=== PATIENT | male | born 1965 | race Caucasian/White ===

== ENCOUNTER 2017-10-06 06:56 | Emergency (ER) | payer BC, OTHER ==
[~2017-10-06] VITALS: Ht 175.3 cm; Wt 148.0 kg
[2017-10-06 07:06] VITALS: BP 154/85; PULSE 102; RESP 20; TEMP 97.8; O2SAT 97
--- NOTE | 2017-10-06 07:27 | PD ---
HPI Chief Complaint: Dizziness Time Seen by Provider: 07:18 Travel History International Travel<30 days: No Contact w/Intl Traveler<30days: No Traveled to known affect area: No History of Present Illness HPI This is a 52-year-old male with a history of diabetes mellitus, hypertension, BPH, obesity, who presents today with complaints of dizziness over the last 2-3 days. Patient states that he wakes up a couple times at night and has couple nights. Patient states that he just started phentermine a few days ago. He states that the symptoms started a couple days ago. He states that when he wakes up he feels like he is hyperventilating. He also says that he feels like he does not get enough oxygen. The patient made the comment that he knows he has sleep apnea but does not have a CPAP machine. I asked him who follows him for his primary care, he reports that his grey percher pre-much cares for everything. The patient states he did not take his phentermine today but last took it yesterday. Denies any chest pain, chest pressure. He states he gets palpitations at times. There are no other complaints at the time of my examination. PFSH Past Medical History Cardiovascular Problems: Yes (hypertension) Diabetes: Yes Diminished Hearing: No Hypertension: Yes Social History Alcohol Use: No Tobacco Use: No Substance Use: No Allergies-Medications (Allergen,Severity, Reaction): Coded Allergies: phenytoin (Unverified Allergy, Unknown, 10/06/17) Reported Meds & Prescriptions Reported Meds & Active Scripts Active Reported Fenofibrate 145 Mg Tab 145 Mg PO DAILY Vesicare (Solifenacin) 5 Mg Tab 5 Mg PO DAILY Lomaira (Phentermine HCl) 8 Mg Tab 8 Mg PO DAILY Farxiga (Dapagliflozin) 10 Mg Tab 10 Mg PO DAILY Cozaar (Losartan Potassium) 50 Mg Tab 50 Mg PO DAILY Clonidine (Clonidine HCl) 0.1 Mg Tab 0.1 Mg PO DAILY Metformin (Metformin HCl) 500 Mg Tab 500 Mg PO BIDPC Metoprolol Succinate ER 24 HR (Metoprolol Succinate) 100 Mg Tab 100 Mg PO DAILY Pioglitazone (Pioglitazone HCl) 30 Mg Tab 30 Mg PO DAILY Losartan (Losartan Potassium) 100 Mg Tab 100 Mg PO DAILY Tamsulosin (Tamsulosin HCl) 0.4 Mg Cap 0.4 Mg PO HS Review of Systems Except as stated in HPI: all other systems reviewed are Neg General / Constitutional: No: Fever, Chills Eyes: No: Blurred Vision, Photophobia HENT: Positive: Lightheadedness, No: Headaches, Neck Pain Cardiovascular: No: Chest Pain or Discomfort, Palpitations, Tachycardia Respiratory: Positive: Other (Patient reports she hyperventilates when he sleeping at night over the last couple nights), No: Cough, Shortness of Breath Gastrointestinal: No: Nausea, Vomiting, Diarrhea, Abdominal Pain Genitourinary: Positive: Other (History of BPH), No: Dysuria, Incontinence Musculoskeletal: Positive: Pain (Tonic lower extremity pain), No: Weakness Neurologic: Positive: Dizziness (More lightheaded and dizzy), No: Weakness, Headache, Change in Mentation Physical Exam Narrative GENERAL: Obese male in no acute respiratory distress. Patient was radha in the lateral decubitus position when I entered the room. SKIN: Focused skin assessment warm/dry. HEAD: Atraumatic. Normocephalic. EYES: No scleral icterus. No injection or drainage. ENT: No nasal bleeding or discharge. Mucous membranes pink and moist. NECK: Trachea midline. Supple. CARDIOVASCULAR: Rate at 99. No murmur appreciated. RESPIRATORY: No accessory muscle use. Clear to auscultation. Breath sounds equal bilaterally. GASTROINTESTINAL: Abdomen soft, obese, non-tender, nondistended. MUSCULOSKELETAL: No obvious deformities. No clubbing. No cyanosis. Venous stasis changes. NEUROLOGICAL: Awake and alert. No obvious cranial nerve deficits. Motor grossly within normal limits. Normal speech. PSYCHIATRIC: Appropriate mood and affect; insight and judgment normal. Data Data Last Documented VS Vital Signs Date Time Temp Pulse Resp B/P (MAP) Pulse Ox O2 Delivery O2 Flow Rate FiO2 10/06/17 11:25 92 18 132/65 (87) 94 10/06/17 08:05 Room Air 10/06/17 07:06 97.8 Orders Orders Electrocardiogram (10/06/17 07:18) Complete Blood Count With Diff (10/06/17 07:18) Comprehensive Metabolic Panel (10/06/17 07:18) Urinalysis - C+S If Indicated (10/06/17 07:18) Thyroid Stimulating Hormone (10/06/17 07:18) Chest, Single Ap (10/06/17 07:18) Iv Access Insert/Monitor (10/06/17 07:18) Ecg Monitoring (10/06/17 07:18) Oximetry (10/06/17 07:18) Arterial Blood Gas (Abg) (10/06/17 08:14) Sodium Chlor 0.9% 1000 Ml Inj (Ns 1000 M (10/06/17 08:45) Labs Laboratory Tests Test 10/06/17 08:00 10/06/17 08:42 10/06/17 09:00 White Blood Count 9.4 TH/MM3 Red Blood Count 5.14 MIL/MM3 Hemoglobin 15.3 GM/DL Hematocrit 43.4 % Mean Corpuscular Volume 84.4 FL Mean Corpuscular Hemoglobin 29.9 PG Mean Corpuscular Hemoglobin Concent 35.4 % Red Cell Distribution Width 15.6 % Platelet Count 274 TH/MM3 Mean Platelet Volume 7.3 FL Neutrophils (%) (Auto) 69.8 % Lymphocytes (%) (Auto) 19.5 % Monocytes (%) (Auto) 6.3 % Eosinophils (%) (Auto) 3.8 % Basophils (%) (Auto) 0.6 % Neutrophils # (Auto) 6.6 TH/MM3 Lymphocytes # (Auto) 1.8 TH/MM3 Monocytes # (Auto) 0.6 TH/MM3 Eosinophils # (Auto) 0.4 TH/MM3 Basophils # (Auto) 0.1 TH/MM3 CBC Comment DIFF FINAL Differential Comment Blood Urea Nitrogen 27 MG/DL Creatinine 1.09 MG/DL Random Glucose 179 MG/DL Total Protein 7.3 GM/DL Albumin 3.4 GM/DL Calcium Level 9.1 MG/DL Alkaline Phosphatase 51 U/L Aspartate Amino Transf (AST/SGOT) 14 U/L Alanine Aminotransferase (ALT/SGPT) 35 U/L Total Bilirubin 0.5 MG/DL Sodium Level 136 MEQ/L Potassium Level 4.0 MEQ/L Chloride Level 103 MEQ/L Carbon Dioxide Level 25.8 MEQ/L Anion Gap 7 MEQ/L Estimat Glomerular Filtration Rate 72 ML/MIN Thyroid Stimulating Hormone 3rd Gen 2.300 uIU/ML Blood Gas Puncture Site LT RADIAL Blood Gas Patient Temperature 98.6 Blood Gas HCO3 25 mmol/L Blood Gas Base Excess 0.7 mmol/L Blood Gas Oxygen Saturation 92 % Arterial Blood pH 7.43 Arterial Blood Partial Pressure CO2 38 mmHg Arterial Blood Partial Pressure O2 69 mmHG Arterial Blood Oxygen Content 20.0 Vol % Arterial Blood Carboxyhemoglobin 1.2 % Arterial Blood Methemoglobin 0.7 % Blood Gas Hemoglobin 15.5 G/DL Oxygen Delivery Device ROOM AIR Blood Gas Inspired Oxygen 21 % Urine Color YELLOW Urine Turbidity CLEAR Urine pH 5.5 Urine Specific [place] 1.027 Urine Protein 30 mg/dL Urine Glucose (UA) 1000 mg/dL Urine Ketones NEG mg/dL Urine Occult Blood NEG Urine Nitrite NEG Urine Bilirubin NEG Urine Urobilinogen LESS THAN 2.0 MG/DL Urine Leukocyte Esterase NEG Urine RBC LESS THAN 1 /hpf Urine WBC 1 /hpf Urine Mucus FEW /lpf Microscopic Urinalysis Comment CULT NOT INDICATED MDM Medical Decision Making Medical Screen Exam Complete: Yes Emergency Medical Condition: Yes Differential Diagnosis Medication side effect versus metabolic derangement versus thyroid disorder versus sleep apnea Narrative Course 52-year-old male with a history of diabetes mellitus, obesity, who presents today with complaints of dizziness/lightheadedness. Patient also stating that he is not sleeping well over the last few days. He recently started phentermine. He did not take it today. Patient was noted to be slightly dehydrated on exam. Been given a liter of IV fluid. He states he feels better. I informed him that if he thinks he has sleep apnea he very likely does. He will need to follow-up with a pulmonary physician. I will give him the name of the pulmonary physician afternoon babysitter. He is instructed to not take his diet pills and if his symptoms improve to let his physician know that he was having symptoms from this. He is instructed to return if he develops any returning of symptoms or feeling worse. Diagnosis Primary Impression: Insomnia Additional Impressions: Dizziness Suspect education side effect. Referrals: Joel Merida MD Additional Instructions: Hold the diet pills. Follow-up with your grey percher. It is important he find a primary care physician. Make an appointment with the pulmonary doctors for evaluation for possible sleep apnea. Drink plenty of fluids. I recommend exercise and moderate diet. Disposition: 01 DISCHARGE HOME Condition: Stable Roger Montero MD Oct 06, 2017 07:27
--- NOTE | 2017-10-06 07:45 | RADRPT ---
EXAM DATE/TIME: 10/06/2017 07:36 [facility] COMPARISON: No previous studies available for comparison. INDICATIONS : Patient states shortness of breath. MEDICAL HISTORY : Hypertension. Hypercholesterolemia. Diabetes mellitus type II. SURGICAL HISTORY : None. ENCOUNTER: Initial ACUITY: 1 day PAIN SCORE: 4/10 LOCATION: Bilateral chest FINDINGS: A single view of the chest demonstrates the lungs to be symmetrically aerated without evidence of mas s, infiltrate or effusion. The cardiomediastinal contours are unremarkable. Osseous structures are intact. CONCLUSION: Normal examination. Dylan Dasilva MD on October 06, 2017 at 7:43 Board Certified Radiologist. This report was verified electronically.
[2017-10-06] MEDS ORDERED: PIOG30TA4 PO (08:02)
[2017-10-06] MEDS ORDERED: METF500T PO (08:02)
[2017-10-06] MEDS ORDERED: CLON0.1T PO (08:02)
[2017-10-06] MEDS ORDERED: COZA50TA PO (08:02)
[2017-10-06] MEDS ORDERED: PHEN-556 PO (08:02)
[2017-10-06] MEDS ORDERED: TAMS0.4C4 PO (08:02)
[2017-10-06] MEDS ORDERED: METO1TAB43 PO (08:02)
[2017-10-06] MEDS ORDERED: VESI5TAB2 PO (08:02)
[2017-10-06] MEDS ORDERED: LOSA100T PO (08:02)
[2017-10-06] MEDS ORDERED: FENO145T2 PO (08:02)
[2017-10-06] MEDS ORDERED: DAPA1TAB3 PO (08:02)
[2017-10-06 08:05] VITALS: BP 133/75; PULSE 100; RESP 16; O2SAT 93
[2017-10-06 08:17] LABS: AUTOMATED NEUTROPHIL # 6.6 TH/MM3 (1.8-7.7); BASOPHIL # 0.1 TH/MM3 (0-0.2); BASOPHIL % 0.6 % (0.0-2.0); EOSINOPHIL # 0.4 TH/MM3 (0-0.4); EOSINOPHIL % 3.8 % (0.0-4.0); HEMATOCRIT 43.4 % (39.0-51.0); HEMOGLOBIN 15.3 GM/DL (13.0-17.0); LYMPH % 19.5 % (9.0-44.0); LYMPHOCYTE # 1.8 TH/MM3 (1.0-4.8); MEAN CELL VOLUME 84.4 FL (80.0-100.0); MEAN CORPUSCULAR HEMOGLOBIN 29.9 PG (27.0-34.0); MEAN CORPUSCULAR HGB CONC 35.4 % (32.0-36.0); MEAN PLATELET VOLUME 7.3 FL (7.0-11.0); MONO % 6.3 % (0.0-8.0); MONOCYTE # 0.6 TH/MM3 (0-0.9); NEUT % 69.8 % (16.0-70.0); PLATELET COUNT 274 TH/MM3 (150-450); RED BLOOD COUNT 5.14 MIL/MM3 (4.50-5.90); RED CELL DISTRIBUTION WIDTH 15.6 % (11.6-17.2); WHITE BLOOD COUNT 9.4 TH/MM3 (4.0-11.0)
[2017-10-06 08:33] LABS: ALBUMIN 3.4 GM/DL (3.4-5.0); ALT (GPT) 35 U/L (12-78); AST (GOT) 14 U/L (15-37); BICARBONATE 25.8 MEQ/L (21.0-32.0); BLOOD UREA NITROGEN 27 MG/DL (7-18); CALCIUM 9.1 MG/DL (8.5-10.1); CHLORIDE 103 MEQ/L (98-107); CREATININE 1.09 MG/DL (0.60-1.30); GLOMERULAR FILTRATION RATE 72 ML/MIN (>89); GLUCOSE,RANDOM 179 MG/DL (74-106); SODIUM (NA) 136 MEQ/L (136-145)
[2017-10-06 08:42] LABS: ALKALINE PHOSPHATASE 51 U/L (45-117); TOTAL BILIRUBIN ADULT 0.5 MG/DL (0.2-1.0); TOTAL PROTEIN 7.3 GM/DL (6.4-8.2)
[2017-10-06] MEDS ORDERED: SODIUM CHLOR 0.9% 1000 ML INJ 1,000 ML IV ONE (08:45)
[2017-10-06 09:18] LABS: BILIRUBIN, URINE NEG (NEG); BLOOD, URINE NEG (NEG); GLUCOSE,URINE 1000 mg/dL (NEG); KETONE, URINE NEG (NEG); MUCUS URINE FEW /lpf (OCC); NITRITE,URINE NEG (NEG); PH, URINE 5.5 (5.0-8.5); URINE COLOR YELLOW (YELLW/STRAW); URINE LEUKOCYTE ESTERASE NEG (NEG)
[2017-10-06 11:25] VITALS: BP 132/65; PULSE 92; RESP 18; O2SAT 94
--- NOTE | 2017-10-09 13:16 | EKG ---
Date Performed: 10/06/2017 Time Performed: 07:52:45 PTAGE: 52 years EKG: SINUS TACHYCARDIA LEFT ANTERIOR FASCICULAR BLOCK SEPTAL MYOCARDIAL INFARCTION ABNORMAL ECG NO PREVIOUS TRACING DOCTOR: Emile Lyn Interpretating Date/Time 10/09/2017 13:14:48
== END 2017-10-06 14:23 | disposition home or self-care (01) ==
LOC: NEPE 06:56
DX: G47.00 Insomnia, unspecified (principal); R42 Dizziness and giddiness; E11.9 Type 2 diabetes mellitus without complications; I10 Essential (primary) hypertension; R94.31 Abnormal electrocardiogram [ECG] [EKG]
CPT/HCPCS: 36600; 71045; 80053; 81001; 82805; 84443; 85025; 93005; 96360; 99285; J7030